=== PATIENT | female | born 1970 | race Caucasian/White ===

== ENCOUNTER 2016-06-21 21:50 | Emergency (ER) | payer OTHER ==
[2016-06-21 22:11] VITALS: BP 128/80; PULSE 83; TEMP 98.2; BMI 34.1
[2016-06-21] MEDS ORDERED: SODIUM CHLORIDE 1,000 ML IV STA (22:52)
[2016-06-21 23:54] LABS: EOSINOPHIL 1.4 % (0-4.5); MCH 29.6 pg (25.7-33.7); MCHC 34.6 g/dl (32.0-36.0); MEAN CELL VOLUME 85.4 fl (80-96); MEAN PLT VOLUME 7.8 fl (7.5-11.1); NEUTROPHILS 43.4 % (42.8-82.8); PLATELET COUNT 253 K/MM3 (134-434); RDW 13.2 % (11.6-15.6); WHITE BLOOD COUNT 6.3 K/mm3 (4.0-10.0)
[2016-06-22 00:07] LABS: URINE APPEARANCE CLEAR; URINE BILIRUBIN NEGATIVE (NEGATIVE); URINE BLOOD NEGATIVE (NEGATIVE); URINE COLOR LTYELLOW; URINE GLUCOSE (UA) NEGATIVE (NEGATIVE); URINE KETONE NEGATIVE (NEGATIVE); URINE LEUK ESTERASE NEGATIVE (NEGATIVE); URINE NITRITE NEGATIVE (NEGATIVE); URINE PROTEIN NEGATIVE (NEGATIVE); URINE UROBILINOGEN NEGATIVE E.U./dl (0.2-1.0)
--- NOTE | 2016-06-22 00:08 | PDOC ---
History of Present Illness - General Chief Complaint: Lightheaded Stated Complaint: DIZZINESS Time Seen by Provider: 06/21/16 22:34 History Source: Patient Exam Limitations: No Limitations - History of Present Illness Initial Comments: 06/22/16 00:03 45yo Female patient w/ no significant past medical problems presents to ED c/o dizziness, sickness, h/a, trouble breathing, diarrhea after each meal since return from a trip to [place]. Patient denies fever, cough, congestion, abd pain , n/v, rash, dysuria, hematuria, back pain, or any other complaints at this time. LNMP: 06-06-2016. Timing/Duration: constant Severity: moderate Past History - Travel Traveled outside of the country in the last 30 days: Yes Close contact w/someone who was outside of country & ill: No Do you know what country they traveled to?: [place] - Past Medical History Allergies/Adverse Reactions: Allergies Allergy/AdvReac Type Severity Reaction Status Date / Time No Known Allergies Allergy Verified 06/21/16 23:53 Home Medications: Ambulatory Orders Ciprofloxacin [Cipro (Restricted To Id)] 500 mg PO BID #20 tablet 06/22/16 - Surgical History Gastric Stapling: Yes - Psycho/Social/Smoking Cessation Hx Anxiety: No Suicidal Ideation: No Smoking History: Never smoked Have you smoked in the past 12 months: No Hx Alcohol Use: No Substance Use Type: None Review of Systems - Review of Systems Able to Perform ROS?: Yes Is the patient limited Turkish proficient: No Constitutional: No: Chills, Fever, Malaise, Night Sweats HEENTM: No: Blurred Vision, Double Vision, Nose Congestion Respiratory: Yes: Other (Trouble breathing). No: Cough, Shortness of Breath, Stridor, Wheezing, Hemoptysis Cardiac (ROS): Yes: Lightheadedness. No: Chest Pain, Palpitations, Syncope, Chest Tightness ABD/GI: Yes: Diarrhea. No: Constipated, Nausea, Vomiting : No: Dysuria, Frequency, Flank Pain, Hematuria, Urgency Musculoskeletal: No: Back Pain Integumentary: No: Erythema, Rash Neurological: Yes: Headache, Dizziness. No: Numbness, Paresthesia, Seizure, Tingling, Tremors, Weakness, Unsteady Gait, Ataxia All Other Systems: Reviewed and Negative *Physical Exam - Vital Signs Last Vital Signs Temp Pulse Resp BP Pulse Ox 98.2 F 83 16 128/80 99 06/21/16 22:08 06/21/16 22:08 06/21/16 22:08 06/21/16 22:08 06/21/16 22:08 - Physical Exam General Appearance: Yes: Nourished, Appropriately Dressed. No: Apparent Distress, Mild Distress, Moderate Distress, Severe Distress HEENT: positive: EOMI, ROZINA, Normal ENT Inspection, Normal Voice, Symmetrical, TMs Normal, Pharynx Normal. negative: Pharyngeal Erythema, Tonsillar Exudate, Tonsillar Erythema, TM Bulging, TM Dull, TM Erythema Neck: positive: Trachea midline, Supple. negative: Decreased range of motion, Stridor, Lymphadenopathy (R), Lymphadenopathy (L) Respiratory/Chest: positive: Lungs Clear, Normal Breath Sounds. negative: Chest Tender, Respiratory Distress, Accessory Muscle Use, Labored Respiration, Rapid RR, Rhonchi, Stridor, Wheezing Cardiovascular: positive: Regular Rhythm, Regular Rate. negative: Edema, JVD, Murmur Gastrointestinal/Abdominal: positive: Normal Bowel Sounds, Soft. negative: Distended, Guarding, Rebound, Tenderness Musculoskeletal: positive: Normal Inspection. negative: CVA Tenderness Extremity: positive: Normal Capillary Refill, Normal Inspection, Normal Range of Motion. negative: Cyanosis, Pedal Edema, Swelling Integumentary: positive: Normal Color, Dry, Warm. negative: Jaundice, Cold, Clammy, Rash, Swelling Neurologic: positive: cold food packer II-XII NML intact, Fully Oriented, Alert, Normal Mood/ Affect, Normal Response, Motor Strength 5/5 Heart Score/ECG Review - ECG Impressions Normal ECG: Yes Non-specific ST Elevation: No Ischemic Changes: No Bradycardia: No Torsades marian Pointes: No WPW: No ED Treatment Course - LABORATORY CBC & Chemistry Diagram: 06/21/16 23:51 06/21/16 23:51 - ADDITIONAL ORDERS Additional order review: 06/21/16 23:51 RBC 4.60 MCV 85.4 MCHC 34.6 RDW 13.2 MPV 7.8 Neutrophils % 43.4 D Lymphocytes % 43.3 H D Monocytes % 10.9 H Eosinophils % 1.4 D Basophils % 1.0 - RADIOLOGY Radiology Studies Ordered: Category Date Time Status HEAD CT WITHOUT CONTRAST [CT] Stat CT Scan 06/22/16 00:01 Ordered *DC/Admit/Observation/Transfer Diagnosis at time of Disposition: Traveler's diarrhea - Discharge Dispostion Disposition: HOME Condition at time of disposition: Improved Admit: No - Prescriptions Prescriptions: Ciprofloxacin [Cipro (Restricted To Id)] 500 mg PO BID #20 tablet - Referrals Referrals: Haroldo Chandler MD [Staff Physician] - - Patient Instructions Printed Discharge Instructions: Traveler's Diarrhea: Don't Let It Ruin Your Vacation, DI for Diarrhea and Traveler's Diarrhea -- Adult Additional Instructions: FOLLOW UP WITH YOUR PRIMARY CARE PROVIDER OR DR. CHANDLER. CALL TO SCHEDULE APPOINTMENT. TAKE MEDICATIONS PRESCRIBED. DRINK PLENTY FLUIDS. RETURN IF SYMPTOMS GET WORSE. Print Language: SOUTH KOREAN - Post Discharge Activity Work/School Note: Back to Work
[2016-06-22 00:25] LABS: ALBUMIN 3.5 g/dl (3.4-5.0); BILIRUBIN,TOTAL 0.4 mg/dL (0.2-1.0); CALCIUM 8.6 mg/dL (8.5-10.1); CREATININE 1.2 mg/dL (0.55-1.02); TOT PROT 7.5 g/dl (6.4-8.2)
--- NOTE | 2016-06-22 00:50 | PDOC ---
*Physical Exam - Vital Signs Last Vital Signs Temp Pulse Resp BP Pulse Ox 98.2 F 83 16 128/80 99 06/21/16 22:08 06/21/16 22:08 06/21/16 22:08 06/21/16 22:08 06/21/16 22:08 - Physical Exam Comments: 06/22/16 00:49 The patient was examined by [RIKA Riggins] under my direct supervision. I personally evaluated the patient. I concur with the above findings and the plan of care. ED Treatment Course - LABORATORY CBC & Chemistry Diagram: 06/21/16 23:51 06/21/16 23:51 - ADDITIONAL ORDERS Additional order review: Laboratory Results 06/21/16 06/21/16 23:51 23:51 Sodium 141 Potassium 4.4 Chloride 104 Carbon Dioxide 27 Anion Gap 10 BUN 15 D Creatinine 1.2 H Creat Clearance w eGFR 49.03 Random Glucose 74 D Calcium 8.6 Total Bilirubin 0.4 D AST 23 D ALT 32 D Alkaline Phosphatase 80 Total Protein 7.5 Albumin 3.5 Total Amylase 47 Lipase 200 Urine Color Ltyellow Urine Appearance Clear Urine pH 7.0 Ur Specific [place] 1.019 Urine Protein Negative Urine Glucose (UA) Negative Urine Ketones Negative Urine Blood Negative Urine Nitrite Negative Urine Bilirubin Negative Urine Urobilinogen Negative Ur Leukocyte Esterase Negative Urine HCG, Qual Negative 06/21/16 23:51 RBC 4.60 MCV 85.4 MCHC 34.6 RDW 13.2 MPV 7.8 Neutrophils % 43.4 D Lymphocytes % 43.3 H D Monocytes % 10.9 H Eosinophils % 1.4 D Basophils % 1.0 - Medications Given in the ED: ED Medications Discontinued Medications Generic Name Dose Route Start Last Admin Trade Name Freq PRN Reason Stop Dose Admin Sodium Chloride 1,000 mls @ 1,000 mls/hr 06/21/16 22:52 06/22/16 00:06 Normal Saline - IV 06/21/16 23:51 1,000 mls/hr ASDIR STA Administration *DC/Admit/Observation/Transfer Diagnosis at time of Disposition: Travelers' diarrhea - Discharge Dispostion Disposition: HOME Condition at time of disposition: Improved - Prescriptions Prescriptions: Ciprofloxacin [Cipro (Restricted To Id)] 500 mg PO BID #20 tablet - Referrals Referrals: Haroldo Chandler MD [Staff Physician] - - Patient Instructions Printed Discharge Instructions: Traveler's Diarrhea: Don't Let It Ruin Your Vacation, DI for Diarrhea and Traveler's Diarrhea -- Adult Additional Instructions: FOLLOW UP WITH YOUR PRIMARY CARE PROVIDER OR DR. CHANDLER. CALL TO SCHEDULE APPOINTMENT. TAKE MEDICATIONS PRESCRIBED. DRINK PLENTY FLUIDS. RETURN IF SYMPTOMS GET WORSE. Print Language: GUINEAN - Post Discharge Activity Work/School Note: Back to Work
[2016-06-22] MEDS ORDERED: CIPROFLOXACIN 250 MG TABLET (RESTRICTED TO ID) PO ONE (01:55)
--- NOTE | 2016-06-22 12:20 | EKG ---
Test Reason : Blood Pressure : / mmHG Vent. Rate : 062 BPM Atrial Rate : 062 BPM P-R Int : 188 ms QRS Dur : 074 ms QT Int : 410 ms P-R-T Axes : 042 038 034 degrees QTc Int : 416 ms NORMAL SINUS RHYTHM NORMAL ECG WHEN COMPARED WITH ECG OF 28-DEC-2008 19:41, VENT. RATE HAS DECREASED BY 36 BPM NONSPECIFIC T WAVE ABNORMALITY, IMPROVED IN ANTERIOR LEADS Confirmed by MELISSA MCNEILL, DANNY ([id number]) on 06/22/2016 12:20:15 PM Referred By: Confirmed By:DANNY TORRES MD
== END 2016-06-22 02:12 | disposition home or self-care (01) ==
LOC: JER 21:50
PROC: 3E0337Z Introduction of Electrolytic and Water Balance Substance into Peripheral Vein, Percutaneous Approach (ICD-10-PCS; principal; 2016-06-21)
DX: R19.7 Diarrhea, unspecified (principal)
CPT/HCPCS: 36415; 70450-TC; 80053; 81003; 82150; 83690; 84703; 85025; 93005; 93010; 99284-25

== ENCOUNTER 2018-10-26 01:46 | Emergency (ER) | payer OTHER | END 2018-10-26 03:43 | disposition home or self-care (01) | LOC: JER 01:46 ==

== ENCOUNTER 2018-12-28 00:12 | Emergency (ER) | payer OTHER ==
--- NOTE | 2018-12-28 00:38 | PDOC ---
History of Present Illness <Chelle Grijalva - Last Filed: 12/28/18 06:28> <Radha Mari - Last Filed: 12/28/18 06:44> - General Stated Complaint: HEADACHE Time Seen by Provider: 12/28/18 00:38 Past History <Chelle Grijalva - Last Filed: 12/28/18 06:28> - Past Medical History COPD: No Psychiatric Problems: Yes - Surgical History Gastric Stapling: Yes - Psycho Social/Smoking Cessation Hx Smoking History: Never smoked Have you smoked in the past 12 months: No Hx Alcohol Use: No Drug/Substance Use Hx: No Substance Use Type: None <Radha Mari - Last Filed: 12/28/18 06:44> - Past Medical History Allergies/Adverse Reactions: Allergies Allergy/AdvReac Type Severity Reaction Status Date / Time No Known Allergies Allergy Verified 12/28/18 00:42 Home Medications: Ambulatory Orders Aripiprazole [Abilify -] 2 mg PO DAILY 10/26/18 Bupropion HCl [Bupropion Xl] 300 mg PO DAILY 10/26/18 Clonazepam 0.5 mg PO DAILY 10/26/18 Escitalopram Oxalate [Lexapro -] 20 mg PO DAILY 10/26/18 Gabapentin [Neurontin] 100 mg PO TID 10/26/18 Meloxicam [Mobic] 15 mg PO DAILY 10/26/18 traZODone HCL [Trazodone HCl] 50 mg PO HS 10/26/18 Indomethacin 50 mg PO DAILY 12/28/18 Tamsulosin HCl 0.4 mg PO DAILY 12/28/18 *Physical Exam - Vital Signs Last Vital Signs Temp Pulse Resp BP Pulse Ox 98.3 F 80 18 150/100 98 12/28/18 00:40 12/28/18 04:11 12/28/18 00:40 12/28/18 04:11 12/28/18 00:40 <Chelle Grijalva - Last Filed: 12/28/18 06:28> Procedures - Lumbar Puncture Indication: Pseudotumor Cerebri, Headache CT Scan: Yes (Negative for acute pathology) Betadine Prep: Yes Position: Right lateral decubitus Site: L4-L51 Local Anesthesia: 1% Lidocaine with epi Volume(ml): 5 Lumbar Puncture Kit: Pediatric Needle Size(gauge): 22 (Long spinal needle (separate from kit)) Opening Pressure(mmHg): 19 Closing Pressure(mmHg): 15 Traumatic Tap: No Tubes Obtained: 4 Clear Fluid: Yes Complications: No <Radha Mari - Last Filed: 12/28/18 06:44> ED Treatment Course - LABORATORY CBC & Chemistry Diagram: 12/28/18 02:30 12/28/18 01:43 - ADDITIONAL ORDERS Additional order review: Laboratory Results 12/28/18 12/28/18 12/28/18 05:00 02:30 01:43 PT with INR 13.70 H INR 1.16 H Sodium 139 Potassium 3.8 Chloride 108 H Carbon Dioxide 24 Anion Gap 7 L BUN 11.3 Creatinine 1.0 Est GFR (CKD-EPI)AfAm 78.24 Est GFR (CKD-EPI)NonAf 67.51 Random Glucose 99 Calcium 9.2 Total Bilirubin 0.3 AST 10 L ALT 14 Alkaline Phosphatase 72 Total Protein 7.6 Albumin 3.6 Beta HCG, Quant < 1.0 CSF Appearance Clear CSF Color Colorless CSF WBC 1 CSF RBC 5 CSF Neutrophils No Result Required. CSF Lymphocytes No Result Required. CSF Eosinophils No Result Required. CSF Basophils No Result Required. CSF Macrophages No Result Required. CSF Plasma Cells No Result Required. CSF Diff Comment No comment CSF Comment No comment CSF Glucose 50 CSF Total Protein 30 12/28/18 02:30 RBC 4.33 MCV 86.5 MCHC 34.0 RDW 12.7 MPV 8.2 Neutrophils % 61.7 D Lymphocytes % 28.4 D Monocytes % 7.9 Eosinophils % 0.9 Basophils % 1.1 - Medications Given in the ED: ED Medications Discontinued Medications Generic Name Dose Route Start Last Admin Trade Name Radha PRN Reason Stop Dose Admin Morphine Sulfate 2 mg 12/28/18 01:35 12/28/18 02:32 Morphine Injection - IVPUSH 12/28/18 01:36 2 mg ONCE ONE Administration Morphine Sulfate 2 mg 12/28/18 03:41 12/28/18 04:12 Morphine Injection - IVPUSH 12/28/18 03:42 2 mg ONCE ONE Administration <Chelle Grijalva - Last Filed: 12/28/18 06:28> - LABORATORY CBC & Chemistry Diagram: 12/28/18 02:30 12/28/18 01:43 <Radha Mari - Last Filed: 12/28/18 06:44> Medical Decision Making - Medical Decision Making 12/28/18 00:57 48yo F hx headaches, chronic R arm and leg pain and weakness, anxiety, depression, manic depression with psychotic features presents from home with headache x5hrs, diffuse but worst behind eyes, gradual onset, constant, temporarily resolved with gabapentin 200mg and indomethacin 100mg and meloxicam 30mg, worsening, associated with blurry vision and spots in vision, photophobia , 3 episodes of NB emesis, and decreased PO intake; headache worse than other headaches that pt gets 2x/wk which normally resolve with advil and are not associated with emesis. Hemodynamically stable, afebrile, 4/5 strength RUE/RLE which pt states is her baseline, neurologically intact, steady gait, supple neck. No trauma, falls, or head injury. No fever or neck stiffness. -CBC, CMP, Preg, Coags -CTH -LP -2mg morphine -Dispo: pending w/u and reassessment 12/28/18 03:05 Labs reviewed - no concerning findings. HCG neg. 12/28/18 03:40 CTH reviewed - no acute pathology. Pt states pain unchanged by morphine 2mg. Will give additional 2mg. LP consent obtained. Risks and benefits explained, pt expresses understanding and consents, all pt questions were answered. 12/28/18 05:04 LP performed under sterile procedures with pt curled lying down on side. Clear CSF, no blood or cloudiness. Opening pressure 19mmHg, closing pressure 15mmHg. 4 tubes collected. 12/28/18 06:43 CSF results reviewed - no concerning findings. Pt feeling better, headache improved. Will dc home with PCP, neuro, and ophtho f/u. Return precautions given. Pt understands all dc instructions and all questions were answered. <Radha Mari - Last Filed: 12/28/18 06:44> Discharge - Discharge Information Problems reviewed: Yes - Admission No <Chelle Grijalva - Last Filed: 12/28/18 06:28> - Discharge Information Problems reviewed: Yes - Admission No <Radha Mari - Last Filed: 12/28/18 06:44> - Discharge Information Clinical Impression/Diagnosis: Headache Condition: Improved Disposition: HOME - Follow up/Referral Referrals: Linda,Emad, MD [Staff Physician] - Jannet Rodriguez MD [Staff Physician] - Yosi Gutierrez MD [Non Staff, Medical] - - Patient Discharge Instructions Patient Printed Discharge Instructions: Migraine Headaches (Alternative Therapy ) Additional Instructions: You have been seen in the Emergency Department for your headache. Your labs, CT scan, and Lumbar Puncture shows no signs concerning for an emergent condition such as a bleed or infection inside your brain or nervous system. There are many possible causes of headaches and the cause of yours is uncertain, but it is most likely caused by your vision impairment. We have given you a referral to an Fish Butcher (eye doctor) for further evaluation of your vision. Give his office a call to set up an appointment for this week. We have also given you a referral to a Neurologist (brain doctor) for further evaluation and management of your headaches. Give his office a call to set up an appointment for this week. It is also important that you follow-up with your primary care doctor within 1 week. Make sure you discuss your medications with your primary care doctor and do not take more medications than prescribed. If you experience pain, you can take Tylenol or Ibuprofen as directed on the medication bottle, but do not exceed 3g of Ibuprofen or 4g of Tylenol a day. Return to the ED immediately if you experience worsening pain not controlled by over the counter medications, dizziness, vomiting, numbness or tingling, weakness, fever, vision changes, or any other new or worsening symptom.
[2018-12-28 00:42] VITALS: TEMP 98.3
[2018-12-28 00:46] VITALS: BMI 35.9
--- NOTE | 2018-12-28 01:25 | PDOC ---
Attending Attestation - Resident Resident Name: Radha Mari - ED Attending Attestation I have performed the following: I have examined & evaluated the patient, The case was reviewed & discussed with the resident, I agree w/resident's findings & plan - HPI HPI: 12/28/18 03:39 Pt comes with a severe headache. States that she needs morphine for the pain. Pt's sister is at the bedside and states that she has never seen the pateint like this. Pt has severe pain. She has had BOO in the past, but this is worse. Pt has no fever and no chills. Pt has no other complaints. - Physicial Exam PE: 12/28/18 03:41 Agree with resident exam. Pt has uncorrected vision 20/70 bilat. - Medical Decision Making 12/28/18 03:39 Patient Name: CALI RODRIGUES THIS IS A PRELIMINARY REPORT FROM [facility]OC[facility] [employer] DATE OF SERVICE: 2018-12-28 02:30:04 IMAGES: 139 EXAM: HEAD CT WITHOUT CONTRAST HISTORY: Headache COMPARISON: None. FINDINGS: The ventricular system is midline and nondilated. The sulcal pattern is normal for the patient's age. There is no bleed, mass, extra-axial fluid collection or mass effect. No skull fracture or skull lesion is identified. The visualized paranasal sinuses and mastoid air cells are clear. IMPRESSION: Normal exam 12/28/18 03:49 Only peds LP trays in the ER; we are awaiting an adult LP tray. 12/28/18 05:11 LP opening pressure 19mm H2O; closing pressure was 15 mm H2O 12/28/18 06:58 LP results are normal and pt feels better and she is ready to go home.
[2018-12-28] MEDS ORDERED: morphine CARPU-JECT 2 MG/1 ML DISP.SYRIN IVPUSH ONE ×2 (01:35→03:41)
[2018-12-28] MEDS ORDERED: MORPHINE SULFATE 2 MG/ML VIAL ONE ×2 (02:25→03:50)
[2018-12-28 02:35] LABS: BASO % 1.1 % (0-2.0); EOS % 0.9 % (0-4.5); HEMATOCRIT 37.5 % (32.4-45.2); HEMOGLOBIN 12.7 GM/dL (10.7-15.3); LYMPH % 28.4 % (8-40); MCH 29.4 pg (25.7-33.7); MEAN CELL VOLUME 86.5 fl (80-96); MEAN PLT VOLUME 8.2 fl (7.5-11.1); MONO % 7.9 % (3.8-10.2); NEUT % 61.7 % (42.8-82.8); PLATELET COUNT 250 K/MM3 (134-434); RBC 4.33 M/mm3 (3.60-5.2); RDW 12.7 % (11.6-15.6); WHITE BLOOD COUNT 7.3 K/mm3 (4.0-10.0)
[2018-12-28 02:44] LABS: INR 1.16 (0.83-1.09); PROTHROMBIN TIME (PATIENT) 13.7 SEC (9.7-13.0)
[2018-12-28 03:05] LABS: ALBUMIN 3.6 g/dl (3.4-5.0); ALK PHOS 72 U/L (45-117); ANION GAP 7 MMOL/L (8-16); BILIRUBIN,TOTAL 0.3 mg/dL (0.2-1); BLOOD UREA NITROGEN 11.3 mg/dL (7-18); CALCIUM 9.2 mg/dL (8.5-10.1); CHLORIDE 108 mmol/L (98-107); CO2 24 mmol/L (21-32); GLUCOSE,RANDOM 99 mg/dL (74-106); POTASSIUM 3.8 mmol/L (3.5-5.1); SGOT/AST 10 U/L (15-37); SGPT/ALT 14 U/L (13-61); SODIUM 139 mmol/L (136-145); TOT PROT 7.6 g/dl (6.4-8.2)
[2018-12-28 04:11] VITALS: PULSE 80
[2018-12-28 06:05] LABS: BF GLUCOSE (CSF ONLY) 50 mg/dL (40-70)
[2018-12-28 06:16] LABS: CSF APPEARANCE CLEAR; CSF COLOR COLORLESS; CSF WBC 1
[2018-12-28 06:49] VITALS: BP 130/90
== END 2018-12-28 06:49 | disposition home or self-care (01) ==
LOC: JER 00:12
PROC: 009U3ZX Drainage of Spinal Canal, Percutaneous Approach, Diagnostic (ICD-10-PCS; principal; 2018-12-28)
DX: R51 Headache (principal); F41.9 Anxiety disorder, unspecified; F31.89 Other bipolar disorder; R29.898 Other symptoms and signs involving the musculoskeletal system; M79.604 Pain in right leg; M79.601 Pain in right arm; G89.29 Other chronic pain
CPT/HCPCS: 36415; 62270; 70450-TC; 80053; 82945; 84157; 84702; 85025; 85610; 87070; 87205; 96374; 96376; 99283-25